=== PATIENT | male | born 1980 | race Caucasian/White ===

== ENCOUNTER 2023-07-15 19:51 | Inpatient (IN) | payer OTHER ==
[~2023-07-15] VITALS: Ht 170.2 cm; Wt 75.0 kg
[2023-07-15 21:34] LABS: BASOPHILS % (AUTO) 1.1 % (0.0-2.0); EOSINOPHILS % (AUTO) 7.9 % (1.0-6.0); HEMATOCRIT 42.7 % (41-53); HEMOGLOBIN 14.4 g/dL (13.5-17.5); LYMPHOCYTES # (AUTO) 2.7 K/uL (1.0-4.8); LYMPHOCYTES % (AUTO) 35.9 % (22.0-44.0); MEAN CORPUSCULAR HEMOGLOBIN 32.9 pg (26.0-34.0); MEAN CORPUSCULAR HGB CONC 33.8 G/dL (31.0-37.0); MEAN CORPUSCULAR VOLUME 97 fL (80-100); MONOCYTES # (AUTO) 0.6 K/uL (0.1-1.0); MONOCYTES % (AUTO) 7.9 % (2.0-9.0); NEUTROPHILS # (AUTO) 3.5 K/uL (1.8-7.7); NEUTROPHILS % (AUTO) 47.2 % (40.0-70.0); PLATELET COUNT (AUTO) 384 K/uL (150-450); RED BLOOD CELL COUNT(AUTO) 4.39 MIL/uL (4.50-5.90); RED CELL DISTRIBUTION WIDTH 13.7 % (11.5-14.5); WHITE BLOOD COUNT (AUTO) 7.4 K/uL (4.5-11.0)
[2023-07-15 21:50] LABS: PROTHROMBIN TIME 10.5 SEC (9.4-11.6)
[2023-07-15 21:52] LABS: ANION GAP 10 mmol/L (8-16); CALCIUM, TOTAL 8.9 mg/dL (8.8-10.5); CARBON DIOXIDE 26 mmol/L (22-29); CHLORIDE 100 mmol/L (98-107); CREATININE 0.79 mg/dL (0.60-1.30); GLOMERULAR FILTR. RATE CALC > 60 mL/min (>60); GLUCOSE,RANDOM 100 mg/dL (70-110); POTASSIUM 3.8 mmol/L (3.5-5.1); SODIUM SERUM 136 mmol/L (136-145); UREA NITROGEN, BLOOD 18 mg/dL (7-18)
[2023-07-15 21:54] LABS: B-TYPE NATRIURETIC PEPTIDE < 5 pg/mL (0-100)
[2023-07-15 21:56] LABS: TROPONIN I-HIGH SENSITIVITY 8 ng/L (<76)
[2023-07-15 22:02] LABS: ALANINE AMINOTRANSFERASE 55 U/L (12-78); ALBUMIN 3.5 g/dL (3.4-5.0); ALKALINE PHOSPHATASE 78 U/L (46-116); ASPARTATE AMINOTRANSFERASE 26 U/L (15-37); BILIRUBIN,TOTAL 0.3 mg/dL (0.1-1.0); CREATINE KINASE, TOTAL ONLY 79 U/L (39-308); TOTAL PROTEIN, SERUM 7.3 g/dL (6.4-8.2)
[2023-07-15] MEDS ORDERED: SODIUM CHLORIDE 0.9% 100 ML ONE (22:44)
[2023-07-15] MEDS ORDERED: IOHEXOL 350 MG/ML 100 ML VIAL ONE (22:45)
[2023-07-16] MEDS ORDERED: ASPIRIN 81 MG CHEWABLE TABLET PO ONE (00:15)
[2023-07-16] MEDS ORDERED: 0.9% SODIUM CHLORIDE 10 ML SYRINGE IVP PRN ×2 (00:15)
[2023-07-16] MEDS ORDERED: HYDROCODONE/ACETAMINOPHEN 5-325 MG TABLET PO ONE (00:15)
[2023-07-16] MEDS ORDERED: ACETAMINOPHEN 325 MG TABLET PO PRN ×3 (00:15→08:30)
[2023-07-16] MEDS ORDERED: ONDANSETRON HCL 4 MG/2 ML VIAL IVP PRN ×2 (00:15)
[2023-07-16 01:15] LABS: COVID AG,FIA SOURCE NASAL SWAB
[2023-07-16 01:23] LABS: TROPONIN I-HIGH SENSITIVITY 10 ng/L (<76)
[2023-07-16 01:39] LABS: SARS-COV2 (COVID) ANTIGEN,FIA Negative (Negative)
[2023-07-16 07:56] LABS: GLUCOMETER DEV NAME(LOC) ER.6; GLUCOSE,POINT OF CARE 80 MG/DL (70-110)
[2023-07-16] MEDS ORDERED: MAGNESIUM HYDROXIDE SUSPENSION 30 ML UDCUP PO PRN (08:30)
[2023-07-16 08:49] LABS: TROPONIN I-HIGH SENSITIVITY 10 ng/L (<76)
[2023-07-16] MEDS: FAMOTIDINE 20 MG TABLET PO SCH (08:51)
[2023-07-16 11:06] VITALS: BP 112/67; PULSE 73; RESP 20; TEMP 98.1; O2SAT 96
[2023-07-16 15:48] LABS: TROPONIN I-HIGH SENSITIVITY 8 ng/L (<76)
[2023-07-16 18:46] LABS: APPEARANCE,URINE CLEAR (CLEAR); BILIRUBIN,URINE NEGATIVE (NEGATIVE); COLOR,URINE LIGHT YELLOW (YELLOW); GLUCOSE, URINE (UA) NEGATIVE (NEGATIVE); KETONES,URINE NEGATIVE (NEGATIVE); LEUKOCYTE ESTERASE ,URINE NEGATIVE (NEGATIVE); NITRATE,URINE NEGATIVE (NEGATIVE); OCCULT BLOOD,URINE NEGATIVE (NEGATIVE); PROTEIN,URINE NEGATIVE (NEGATIVE); SPECIFIC GRAVITIY, URINE 1.023 (1.003-1.030); UROBILINOGEN,URINE <=1.0 mg/dL (<=1.0)
[2023-07-16 18:53] LABS: ALCOHOL, URINE DRUG SCREEN NEGATIVE (NEGATIVE); AMPHET/METH SCREEN,URINE POSITIVE (NEGATIVE); BARBITURATE SCREEN, URINE NEGATIVE (NEGATIVE); BENZODIAZEPINES SCREEN,URINE NEGATIVE (NEGATIVE); CANNABINOID SCREEN,URINE NEGATIVE (NEGATIVE); COCAINE SCREEN,URINE NEGATIVE (NEGATIVE); METHADONE SCREEN, URINE NEGATIVE (NEGATIVE); OPIATE SCREEN,URINE NEGATIVE (NEGATIVE); PHENCYCLIDINE SCREEN,URINE NEGATIVE (NEGATIVE)
[2023-07-16 20:00] VITALS: BP 136/89; PULSE 72; RESP 18; TEMP 98.2
[2023-07-17 03:44] VITALS: BP 131/76; PULSE 80; RESP 18; TEMP 98
[2023-07-17 08:10] VITALS: BP 154/77; PULSE 77; RESP 19; TEMP 97.9
[2023-07-17] MEDS: FAMOTIDINE 20 MG TABLET PO SCH (08:29)
[2023-07-17] MEDS ORDERED: SODIUM PHOSPHATE,MONO-DIBASIC 133 ML ENEMA PR ONE (15:00)
[2023-07-17] MEDS ORDERED: PEG 3350/NA SULF,BICARB,CL/KCL 4000 ML SOLUTION PO ONE (15:00)
[2023-07-17] MEDS ORDERED: DOCU-385 PO (15:03)
[2023-07-17 19:36] VITALS: BP 111/63; PULSE 68; RESP 19; TEMP 98.7
[2023-07-18 04:53] VITALS: BP 124/88; PULSE 70; RESP 19; TEMP 98.4
[2023-07-18] MEDS ORDERED: BISACODYL 10 MG RECTAL RECTAL SUPPOSITORY PR ONE (06:45)
[2023-07-18] MEDS: SENNOSIDES 8.6 MG TABLET PO SCH ×2 (08:13→20:26)
[2023-07-18] MEDS: FAMOTIDINE 20 MG TABLET PO SCH (08:13)
[2023-07-18 09:05] VITALS: BP 121/74; PULSE 90; RESP 19; TEMP 98.1
[2023-07-18 20:06] VITALS: BP 142/79; PULSE 82; RESP 20; TEMP 98.5
[2023-07-18] MEDS: RisperiDONE 1 MG TABLET PO SCH (20:26)
[2023-07-19 03:55] VITALS: BP 130/75; PULSE 67; RESP 18; TEMP 98.1
[2023-07-19] MEDS: SENNOSIDES 8.6 MG TABLET PO SCH ×2 (09:27→20:05)
[2023-07-19] MEDS: FAMOTIDINE 20 MG TABLET PO SCH (09:28)
[2023-07-19 09:33] VITALS: BP 124/69; PULSE 84; RESP 18; TEMP 98.7
[2023-07-19] MEDS: RisperiDONE 1 MG TABLET PO SCH (20:05)
[2023-07-19 20:28] VITALS: BP 119/70; PULSE 80; RESP 18; TEMP 97.9
[2023-07-20 04:13] VITALS: BP 121/80; PULSE 79; RESP 20; TEMP 98.1
[2023-07-20] MEDS: SENNOSIDES 8.6 MG TABLET PO SCH (07:53)
[2023-07-20] MEDS: FAMOTIDINE 20 MG TABLET PO SCH (07:53)
[2023-07-20 10:06] VITALS: BP 108/62; PULSE 80; RESP 18; TEMP 98.2
[2023-07-20] MEDS ORDERED: RISP1TAB98 PO (12:23)
== END 2023-07-20 16:30 | DRG 313 ==
LOC: EMS 19:55 → AHU 07-16 00:23 → 6S 07-16 09:33
PROVIDERS: ADMIT Internal Medicine; ATTEND Internal Medicine
DX: R07.89 Other chest pain (principal); R45.851 Suicidal ideations; I10 Essential (primary) hypertension; K59.00 Constipation, unspecified; F15.90 Other stimulant use, unspecified, uncomplicated; Z20.822 Contact with and (suspected) exposure to COVID-19; E11.9 Type 2 diabetes mellitus without complications; F29 Unspecified psychosis not due to a substance or known physiological condition; I25.10 Atherosclerotic heart disease of native coronary artery without angina pectoris; Z83.3 Family history of diabetes mellitus
CPT/HCPCS: 71045; 71275; 74018; 80053; 80307; 81003; 82550; 82962; 83880; 84484; 85025; 85610; 85730; 93005; 99291; J7050; Q9967; 36415-L1; 36415-TC